=== PATIENT | male | born 1995 | race Caucasian/White ===

== ENCOUNTER 2017-11-01 19:20 | Emergency (ER) | payer OTHER ==
[~2017-11-01] VITALS: Ht 165.1 cm; Wt 72.6 kg
== END 2017-11-01 21:47 | disposition home or self-care (01) ==
LOC: ER 19:20
DX: S66.811A Strain of other specified muscles, fascia and tendons at wrist and hand level, right hand, initial encounter (principal); X50.3XXA Overexertion from repetitive movements, initial encounter; Y93.89 Activity, other specified; Y92.69 Other specified industrial and construction area as the place of occurrence of the external cause; Y99.8 Other external cause status

== ENCOUNTER 2018-04-04 17:33 | Emergency (ER) | payer OTHER ==
[~2018-04-04] VITALS: Ht 167.6 cm; Wt 81.6 kg
== END 2018-04-04 20:15 | disposition home or self-care (01) ==
LOC: ER 17:33
DX: J06.9 Acute upper respiratory infection, unspecified (principal); B34.9 Viral infection, unspecified

== ENCOUNTER → 2020-07-15 | Emergency (ER) | payer OTHER ==
[~2020-07-15] VITALS: Ht 167.6 cm; Wt 86.2 kg
== END | disposition home or self-care (01) ==
LOC: ER 17:44
DX: J32.8 Other chronic sinusitis (principal); Z03.818 Encounter for observation for suspected exposure to other biological agents ruled out

== ENCOUNTER 2023-01-12 09:06 | Emergency (ER) | payer OTHER ==
[~2023-01-12] VITALS: Ht 167.6 cm; Wt 86.2 kg
[2023-01-12] MEDS ORDERED: ZITHROMAX TRI-500 MG PO (11:39)
== END 2023-01-12 12:10 | disposition home or self-care (01) ==
LOC: ER 09:06 → EMR PED 09:14 → ER 12:10
DX: B34.9 Viral infection, unspecified (principal); H92.01 Otalgia, right ear; Z20.822 Contact with and (suspected) exposure to COVID-19; Z91.013 Allergy to seafood